=== PATIENT | male | born 1985 | race Two or more races ===

== ENCOUNTER 2016-12-23 17:33 | Emergency (ER) | payer MEDICAID ==
[~2016-12-23] VITALS: Ht 170.2 cm; Wt 73.5 kg
--- NOTE | 2016-12-23 18:09 | NUR ---
TEXTED FOR MRI C SPINE APPROVAL.
[2016-12-23 19:08] VITALS: BP 112/83
--- NOTE | 2016-12-23 19:08 | NUR ---
RECEIVED REPORT FROM YUMIKO RIVERA FOR MIKAYLA.
--- NOTE | 2016-12-23 19:42 | NUR ---
PT TO MRI
--- NOTE | 2016-12-23 20:19 | NUR ---
PT RETURNED FROM CT.
--- NOTE | 2016-12-23 20:57 | NUR ---
DR LEBRON AT BEDSIDE SPEAKING TO PT REGARDING RESULTS
== END 2016-12-23 21:03 | disposition home or self-care (01) ==
LOC: ER 17:43
DX: F12.10 Cannabis abuse, uncomplicated (principal); S16.1XXA Strain of muscle, fascia and tendon at neck level, initial encounter; W21.02XA Struck by soccer ball, initial encounter; Y93.89 Activity, other specified; Y92.89 Other specified places as the place of occurrence of the external cause; Y99.9 Unspecified external cause status
CPT/HCPCS: 72141; 99284; A4606; Z7610